=== PATIENT | female | born 1980 | race Caucasian/White ===

== ENCOUNTER 2019-01-13 15:12 | Emergency (ER) | payer MEDICAID, OTHER ==
[~2019-01-13] VITALS: Ht 162.6 cm; Wt 83.9 kg
[~2019-01-13 15:12] MED LIST: AMOXICILLIN500 MG ORAL; IBUPROFEN600 MG ORAL; NKM; NORCO 5-325 TA1 EACH ORAL
[2019-01-13 15:39] VITALS: BP 143/84
--- NOTE | 2019-01-13 15:39 | NUR ---
ED Nurse Note:urine sent to labs
[2019-01-13 16:22] LABS: APPEARANCE,URINE CLEAR; BILIRUBIN, URINE NEGATIVE (NEGATIVE); COLOR,URINE PALE YELLOW; GLUCOSE, URINE (UA) NEGATIVE (NEGATIVE); KETONES,URINE NEGATIVE (NEGATIVE); LEUKOCYTE ESTERASE ,URINE 1+ (NEGATIVE); NITRITE,URINE NEGATIVE (NEGATIVE); PH,URINE 9 (4.5-8.0); PROTEIN,URINE 3+ (NEGATIVE); UROBILINOGEN,URINE NORMAL MG/DL (0.0-1.0)
--- NOTE | 2019-01-13 16:30 | Emergency Room Report ---
History of Present Illness General Chief Complaint: Female Urogenital Problems Source: Patient Present Illness HPI 38-year-old female with no significant past medical history here complaining of 2 days of dysuria and urinary frequency. Patient also reports that she started noticing blood in her urine today. Denies flank pain, suprapubic pain, fever and chills, nausea vomiting. Has not taken medication for symptom relief. Denies vaginal discharge, and recent sexual activity. Last menstrual period was 3 days ago and regular. Allergies: Coded Allergies: No Known Allergies (Unverified , 12/19/13) Patient History Past Medical History: see triage record Past Surgical History: unable to obtain Pertinent Family History: none Last Menstrual Period: 01/04/19 Now: No Immunizations: UTD Reviewed Nursing Documentation: PMH: Agreed; PSxH: Agreed Nursing Documentation-PMH Past Medical History: No Stated History Review of Systems All Other Systems: negative except mentioned in HPI Physical Exam Vital Signs Date Time Temp Pulse Resp B/P (MAP) Pulse Ox O2 Delivery O2 Flow Rate FiO2 01/13/19 15:17 98.2 78 18 143/84 (103) 96 Room Air Sp02 EP Interpretation: reviewed, normal General Appearance: no apparent distress, alert, GCS 15, non-toxic Head: normocephalic, atraumatic Eyes: bilateral eye normal inspection, bilateral eye PERRL ENT: hearing grossly normal, normal pharynx, no angioedema, normal voice Neck: full range of motion, supple/symm/no masses Respiratory: chest non-tender, lungs clear, normal breath sounds, no rhonchi, speaking full sentences Cardiovascular #1: regular rate, rhythm, no edema, no murmur Gastrointestinal: normal bowel sounds, non tender, soft, non-distended, no guarding, no rebound Rectal: deferred Genitourinary: normal inspection, no CVA tenderness Musculoskeletal: normal inspection, back normal, digits/nails normal Neurologic: alert, oriented x3, responsive, motor strength/tone normal, sensory intact, speech normal Psychiatric: judgement/insight normal, memory normal, mood/affect normal, no suicidal/homicidal ideation Skin: no rash Lymphatic: no adenopathy Medical Decision Making PA Attestation All my diagnosis and treatment plans were reviewed ad discussed with my supervising physician Dr. Sullivan Diagnostic Impression: Primary Impression: UTI (urinary tract infection) Additional Impression: Hematuria ER Course 38-year-old female with no significant past medical history here complaining of 2 days of dysuria and urinary frequency. Patient also reports that she started noticing blood in her urine today. Denies flank pain, suprapubic pain, fever and chills, nausea vomiting. Has not taken medication for symptom relief. Denies vaginal discharge, and recent sexual activity. Last menstrual period was 3 days ago and regular. Ddx considered but are not limited to: UTI, pyelonephritis, urinary incontinence , prolapsed bladder Vital signs: are WNL, pt. is afebrile H&PE are most consistent with: UTI, hematuria ORDERS: UA, urine preg, Macrobid, Pyridium ED INTERVENTIONS: None required at this time. DISCHARGE: At this time pt. is stable for d/c to home. Will provide printed patient care instructions, and any necessary prescriptions. Care plan and follow up instructions have been discussed with the patient prior to discharge. Advised patient to follow-up with primary care and if worsening symptoms return to the emergency room Last Vital Signs Date Time Temp Pulse Resp B/P (MAP) Pulse Ox O2 Delivery O2 Flow Rate FiO2 01/13/19 15:39 98.2 75 18 143/84 96 Room Air Disposition: HOME, SELF-CARE Condition: Stable Scripts Phenazopyridine Hcl* (PYRIDIUM*) 200 Mg Tablet 200 MG ORAL THREE TIMES A DAY for 2 Days, #6 TAB 0 Refills Prov: Fareed Bucio 01/13/19 Nitrofurantoin Monohyd/M-Cryst* (MACROBID 100 MG*) 100 Mg Capsule 100 MG ORAL EVERY 12 HOURS for 7 Days, #14 CAP Prov: Fareed Bucio 01/13/19 Referrals: [facility]ERR[facility] (PCP) Patient Instructions: Hematuria, Adult, Urinary Tract Infection Additional Instructions: Take medication as directed follow-up with your primary care provider if worsening blood in your urine return to the emergency room Fareed Bucio Jan 13, 2019 16:30
[2019-01-13] MEDS ORDERED: NITROFURANTOIN100 M2 ORAL (16:31)
[2019-01-13] MEDS ORDERED: PHENAZOPYRIDIN200 MG ORAL (16:31)
--- NOTE | 2019-01-13 17:00 | NUR ---
ER DISCHARGE NOTE: Patient is cleared to be discharged per ERMD, pt is aox4, on room air, with stable vital signs. pt was given dc and prescription instructions, pt was able to verbalize understanding, pt is able to ambulate with steady gait. pt took all belongings.
[2019-01-13 18:10] VITALS: BP 143/84
== END 2019-01-13 17:10 | disposition home or self-care (01) ==
LOC: EMR 15:37
DX: N39.0 Urinary tract infection, site not specified (principal); R31.9 Hematuria, unspecified
CPT/HCPCS: 81001; 81025; Z7502; 99283